=== PATIENT | male | born 1970 | race Caucasian/White ===

== ENCOUNTER 2023-09-02 20:23 | Emergency (ER) | payer OTHER, SELFPAY ==
[2023-09-02 20:25] VITALS: BP 131/107; PULSE 107; RESP 15; TEMP 37.6; O2SAT 98; BMI 17.7
[2023-09-02 22:24] VITALS: RESP 18
--- NOTE | 2023-09-02 22:40 | EDS_ITS ---
HPI History of Present Illness Chief Complaint: General Illness Informant: patient Onset/Context/Timing Onset: Days (5) Context: Gradual Onset Timing: Continuous Quality: Weak, off balance Location: Generalized Worsened by: Nothing Relieved by: Nothing Narrative Narrative: Patient presents with lack of energy, and feeling off balance that has been getting worse over the last 5 days. Patient states he feels weak all over. Patient states it is gradually getting worse. Patient states nothing makes his symptoms worse and nothing makes it better. Patient admits to some subjective chills and a sore throat. Patient admits to a cough but denies any sputum production. Patient denies any shortness of breath. Patient admits to a mild headache. Patient denies any chest pain. PFSH PFSH Medical History Hyperlipemia Smoker Home Medications hydrocodone-acetaminophen 5-325mg 5mg-325mg 1 tab PO Q4H PRN PRN Pain ##20 10/24/13 [Rx Last Taken Unknown] Allergy/AdvReac Type Severity Reaction Status Date / Time No Known Allergies Allergy Verified 09/02/23 20:30 Surgical History History of hernia surgery History of removal of skin mole Social History household members: children housing: house current occupational status: employed Smoking Status: Current every day smoker tobacco type: cigarettes ROS ROS ED Constitutional Constitutional ED: Reports chills and subjective; Denies fever(s) Eyes Eyes: Denies blurry vision or change in vision ENT ENT ED: Reports sore throat; Denies rhinorrhea Cardiovascular Cardiovascular: Denies chest pain or palpitations Respiratory/Chest Respiratory/Chest: Reports cough; Denies dyspnea Gastrointestinal Gastrointestinal: Denies nausea or vomiting Genitourinary Genitourinary ED: Denies dysuria or hematuria Musculoskeletal Musculoskeletal: Denies back pain or neck pain Integumentary Denies abscess or rash Neurologic Neurologic: Reports headache(s) and weakness Allergic/Immunologic Allergic/Immunologic ED: Denies mouth swelling or urticaria EXAM Physical Exam Const Vital Signs: 09/02/23 20:25 09/02/23 22:16 Temperature 99.7 F H Temperature Source Oral Pulse Rate 107 H Respiratory Rate 15 Respiratory Pattern Normal Blood Pressure 131/107 H Blood Pressure Mean 115 Pulse Ox 98 Oxygen Delivery Method Room Air Positive well nourished and well developed General Appearance ED: well developed and NAD HEENT Reports moist mucous membranes Neck supple and no JVD Resp normal respiratory effort and clear to auscultation bilaterally Cardio regular rate and regular rhythm GI non-tender and non-distended Palpation: soft Extremity normal to inspection General Extremety ED: Negative for edema or tenderness General Extremity: Negative for edema Neuro oriented x3, CN's II-XII intact bilaterally and no sensory deficits noted Sensorium / Orientation: alert Motor Exam: strength 5/5 throughout Psych mental status grossly normal MDM MDM MDM Narrative Medical decision making narrative: Differential diagnosis includes viral upper respiratory infection, viral bronchitis, pneumonia, dehydration, leukocytosis, COVID-19 infection, and influenza infection. COVID-19 rapid antigen will be obtained to assess for COVID-19 infection. Influenza A and influenza B antigens will be obtained to assess for influenza infection. PA and lateral chest x-ray will be obtained to assess for pneumonia. CBC will be obtained to assess for leukocytosis and anemia. Basic metabolic profile will be obtained to assess for electrolyte abnormality and renal function. Lab Data Attestation: I reviewed the patient's lab results. Lab results narrative: CBC was reviewed and was within normal limits. Basic metabolic profile was reviewed and was within normal limits. COVID-19 rapid antigen was reviewed and was positive. Influenza A and influenza B antigens were reviewed and were negative. Labs: Laboratory Results - last 24 hr 09/02/23 22:45 WBC 6.5 RBC 4.58 L Hgb 13.9 Hct 42.2 MCV 92.1 MCH 30.3 MCHC 32.9 RDW Std Deviation 42.5 RDW Coeff of Micaela 12.7 Plt Count 215 MPV 9.2 Immature Gran % (Auto) 0.300 Neut % (Auto) 70.6 H Lymph % (Auto) 16.4 L [place] % (Auto) 11.9 H Eos % (Auto) 0.2 Baso % (Auto) 0.6 Absolute Neuts (auto) 4.6 Absolute Lymphs (auto) 1.06 Nucleated RBC % 0 Sodium 137 Potassium 4.5 Chloride 102 Carbon Dioxide 31.0 Anion Gap 4 L BUN 13 Creatinine 0.77 Estim Creat Clear Calc 97.10 Est GFR (MDRD) Af Amer 136 Est GFR (MDRD) Non-Af 112 BUN/Creatinine Ratio 16.9 Glucose 103 Calcium 8.6 Radiography Diagnostic Testing: Clinical Impression(s) from Imaging Studies Chest X-Ray 09/02/23 23:08 IMPRESSION: Emphysema without pneumonia or atelectasis. Electronically Signed: Haile Griffith MD at 23:29 EST , PA and lateral chest x-ray was obtained. There are 2 views. On my independent interpretation, lung castaneda are clear. There is normal cardiac silhouette. Bony thorax is normal. There is no acute process noted. Radiologist also interpreted the x-ray and agrees. Treatment and Re-Evaluation :: Patient was given IV fluids. Smoking cessation was discussed. Patient was advised of his findings. Patient was given a prescription for albuterol inha ler. Patient was instructed to take Tylenol or ibuprofen as needed for pain or fever. Patient was instructed to drink plenty of fluids. Patient was instructed to follow-up with his primary care physician in 5 to 7 days for reevaluation. Patient understood and was agreeable with the plan. All questions were answered. Discharge Plan Triage Chief Complaint: General Illness ED Provider: Alejandro Bhagat Dx/Rx/DC Orders Clinical Impression: COVID-19, Tobacco use disorder Instructions: Coronavirus Disease 2019 (COVID-19): Overview Prescriptions: No Action hydrocodone-acetaminophen 1 TABLET tablet 1 tab PO Q4H PRN PRN (Reason: Pain) Qty: 20 0RF Stand Alone Forms: ED Work / School Excuse Primary Care Provider: Otoniel Galan Referrals: Otoniel Galan MD [Primary Care Provider] - 5-7 Days Disposition Disposition: Home, Self Care
[2023-09-02] MEDS: 0.9% Normal Saline (1000mL) 1,000 ML 1000 ML IV (22:51)
[2023-09-02 22:55] LABS: Absolute Lymphocyte Count 1.06 X10^3/uL (0.83-4.51); Absolute Neutrophil Count 4.6 X10^3/uL (2.0-7.7); Basophil# 0.04 X10^3/uL; Basophil% 0.6 % (0-1); Eosinophil# 0.01 X10^3/uL; Eosinophils% 0.2 % (0-5); Hematocrit 42.2 % (40-54); Hemoglobin 13.9 g/dL (13.0-16.5); Lymphocyte # 1.06 X10^3/ul (0.83-4.51); Lymphocyte % 16.4 % (19-41); Mean Corp Hgb Conc 32.9 g/dL (32-36); Mean Corpuscular Hgb 30.3 pg (27.0-32.0); Mean Corpuscular Volume 92.1 fL (80-94); Mean Platelet Vol. 9.2 fl (6.2-12.0); Monocyte# 0.77 X10^3/uL; Monocyte% 11.9 % (0-10); NRBC Flagged by Analyzer 0 % (0-5); Neutrophil # 4.55 X10^3/uL (2.7-7.7); Neutrophil % 70.6 % (47-70); Platelet Count 215 K/mm3 (150-450); RBC Distribution Width CV 12.7 % (11.6-14.6); RBC Distribution Width SD 42.5 fl (35.1-43.9); Red Blood Count 4.58 M/mm3 (4.6-6.2); White Blood Count 6.5 K/mm3 (4.4-11.0)
--- NOTE | 2023-09-02 23:08 | RAD_ITS ---
STUDY: X-RAY CHEST REASON FOR EXAM: Male, 53 years old. Cough TECHNIQUE: PA and lateral views of the chest. COMPARISON: None. FINDINGS: There is hyperinflation of the lungs consistent with chronic obstructive lung disease (COPD). There is no demonstrated pleural abnormality. Normal size heart. Normal mediastinum and abby. Normal visualized pulmonary arteries. Normal visualized aortic arch and descending thoracic aorta. Normal visualized thoracic spine. Normal visualized ribs, clavicles, and shoulders. There is no demonstrated abnormality of the visualized soft tissue structures of the upper abdomen. RAD/Chest PA and Lateral IMPRESSION: Emphysema without pneumonia or atelectasis. Electronically Signed: Haile Griffith MD at 23:29 [facility] ,
[2023-09-02 23:11] LABS: Anion Gap 4 (5-15); BUN 13 mg/dL (7-18); BUN/Creat Ratio 16.9 RATIO (10-20); Calcium,Total 8.6 mg/dL (8.5-10.1); Chloride 102 mmol/L (98-107); Creatinine, Serum 0.77 mg/dL (0.70-1.30); EST Glomerular Filtration Rate 112 mL/min (>60); Est Glom Filt Rate - Afr Amer 136 mL/min (>60); Glucose 103 mg/dL (74-106); Potassium 4.5 mmol/L (3.5-5.1); Sodium Level 137 mmol/L (136-145)
[2023-09-03] VITALS: RESP 18
== END 2023-09-03 00:32 | disposition home or self-care (01) ==
LOC: ED 09-03 00:06
PROVIDERS: Emergency Provider Emergency Medicine; PCP Family Medicine; Visit Provider Emergency Medicine
DX: U07.1 COVID-19 (principal); E78.5 Hyperlipidemia, unspecified; F17.210 Nicotine dependence, cigarettes, uncomplicated; R51.9 Headache, unspecified
CPT/HCPCS: 71046; 80048; 85025; 87428; 96360; 99283; J7030; A4216